=== PATIENT | female | born 1970 ===

== ENCOUNTER 2018-11-25 10:45 | Emergency (ER) | payer BC ==
[~2018-11-25] VITALS: Ht 167.6 cm; Wt 77.3 kg
[2018-11-25 11:05] VITALS: TEMP 99
[2018-11-25 11:52] VITALS: BP 157/99; PULSE 83
== END 2018-11-25 11:52 | disposition home or self-care (01) ==
LOC: COL.ER 10:45
DX: S09.90XA Unspecified injury of head, initial encounter (principal); S01.01XA Laceration without foreign body of scalp, initial encounter; W10.9XXA Fall (on) (from) unspecified stairs and steps, initial encounter; Y92.009 Unspecified place in unspecified non-institutional (private) residence as the place of occurrence of the external cause

== ENCOUNTER 2018-12-02 17:19 | Emergency (ER) | payer BC ==
[2018-12-02 17:37] VITALS: BP 167/102; PULSE 72; TEMP 99.2
== END 2018-12-02 17:56 | disposition home or self-care (01) ==
LOC: COL.ER 17:19
DX: S01.01XD Laceration without foreign body of scalp, subsequent encounter (principal); X58.XXXD Exposure to other specified factors, subsequent encounter